=== PATIENT | male | born 1995 | race African-American/Black ===

== ENCOUNTER 2018-07-11 01:26 | Emergency (ER) | payer SELFPAY ==
[~2018-07-11] VITALS: Ht 175.3 cm; Wt 68.0 kg
[2018-07-11 02:00] VITALS: BP 164/92
== END 2018-07-11 02:25 | disposition left against medical advice (07) ==
LOC: ER 01:26
DX: K08.89 Other specified disorders of teeth and supporting structures (principal); Z53.21 Procedure and treatment not carried out due to patient leaving prior to being seen by health care provider

== ENCOUNTER 2021-02-15 18:49 | Emergency (ER) | payer SELFPAY ==
[~2021-02-15] VITALS: Ht 175.3 cm; Wt 59.9 kg
[2021-02-15 19:42] VITALS: BP 130/83
[2021-02-15] MEDS ORDERED: IBUPROFEN 200 MG TABLET. PO ONE (20:15)
[2021-02-15] MEDS ORDERED: HYDROcodone/APAP 5/325MG 1 TAB TABLET PO ONE (20:15)
[2021-02-15 20:16] LABS: BILIRUBIN,URINE NEGATIVE (NEG); CLARITY,URINE CLOUDY; COLOR,URINE AMBER; NITRITE,URINE NEGATIVE (NEG); PROTEIN,URINE 100 mg/dL (NEG-TRACE)
[2021-02-15 20:25] LABS: BACTERIA,URINE 0 /HPF (0-FEW); RBC,URINE 0 /HPF (0-2); WBC,URINE >40 /HPF (0-4)
[2021-02-15] MEDS ORDERED: cefTRIAXone IM 500 MG VIAL. IM ONE (21:00)
--- NOTE | 2021-02-15 21:12 | RAD ---
CLINICAL HISTORY: Reason: Left testicular swelling/pain / Spl. Instructions: / History: COMPARISON: None available. TECHNIQUE: Ultrasound images of the scrotum was performed with betancourt-scale and color doppler. FINDINGS: The right testicle measures 4.3 x 2.5 x 2.3 cm The left testis measures 4.3 x 2.9 x 2.5 cm. There is no intratesticular abnormality. Increased vascularity noted within the left testicle and ep ididymis. The epididymis is normal in appearance bilaterally. There is no hydrocele or varicocele. IMPRESSION: Findings concerning for left-sided epididymoorchitis Electronically signed by: Hamilton Forrester MD (02/15/2021 9:10 PM) [facility]
--- NOTE | 2021-02-15 21:39 | PHYS DOC ---
Past Medical History Past Medical History: No Pertinent History Past Surgical History: Other Additional Past Surgical Histo: L EAR SURGERY- REMOVED GLUE WHEN HE WAS 5 Smoking Status: Never Smoker Alcohol Use: Rarely Drug Use: Marijuana General Adult EDM: Chief Complaint: SEXUALLY TRANSMITTED DISEASE HPI: HPI: Patient is a 25-year-old male presents emergency department complaining of left testicular swelling and pain since last . Patient reports having unprotected vaginal sex 2 weeks ago. Denies having sex since then, reports mas turbation only. Rates pain 5 out of 10. Denies penile discharge, denies rashes or lesions to his penis or genitals, denies pain with urination, denies burning with urination, denies itching of the genitals or penis. Reports vaginal sex only, denies anal sex or sex with men. Denies recent fever or chills, ports his immunizations are up-to-date, denies throat pain or throat swelling. Reports multiple sex partners, denies history of epididymitis, reports having STIs in the past. Denies other physical complaints or physical concerns. Review of Systems: Review of Systems: 14 body systems of review of systems have been reviewed. See HPI for pertinent positives and negative responses, otherwise all other systems are negative, nonpertinent or noncontributory. Constitutional: Negative except as outlined in HPI above. Skin: Negative except as outlined in HPI above. Eyes: Negative except as outlined in HPI above. HENT: Negative except as outlined in HPI above. Respiratory: Negative except as outlined in HPI above. Cardiovascular: Negative except as outlined in HPI above. GI: Negative except as outlined in HPI above. : Negative except as outlined in HPI above. Musculoskeletal: Negative except as outlined in HPI above. Integument: Negative except as outlined in HPI above. Neurologic: Negative except as outlined in HPI above. Endocrine: Negative except as outlined in HPI above. Lymphatic: Negative except as outlined in HPI above. Psychiatric: Negative except as outlined in HPI above. Heart Score: C/O Chest Pain: No Risk Factors: Risk Factors: DM, Current or recent (<one month) smoker, HTN, HLP, family history of CAD, obesity. Risk Scores: Score 0 - 3: 2.5% MACE over next 6 weeks - Discharge Home Score 4 - 6: 20.3% MACE over next 6 weeks - Admit for Clinical Observation Score 7 - 10: 72.7% MACE over next 6 weeks - Early Invasive Strategies Current Medications: Current Medications Medications (Trade) Dose Ordered Sig/Catrachita Start Time Stop Time Status Last Admin Dose Admin Acetaminophen/ Hydrocodone Bitart (Lortab 5/325) 1 tab 1X ONCE 02/15/21 20:15 02/15/21 20:16 DC 02/15/21 20:27 1 TAB Ceftriaxone Sodium (Rocephin Im) 500 mg 1X ONCE 02/15/21 21:00 02/15/21 21:01 DC Ibuprofen (Motrin) 600 mg 1X ONCE 02/15/21 20:15 02/15/21 20:16 DC 02/15/21 20:26 600 MG Allergies: Allergies: Allergies Coded Allergies Type Severity Reaction Last Updated Verified No Known Drug Allergies 02/15/21 No Physical Exam: PE: Constitutional: Well developed, well nourished, no acute distress, non-toxic appearance. 25-year-old male in no apparent distress. HENT: Normocephalic, atraumatic. Eyes: Conjunctiva normal, no discharge. Neck: Normal range of motion. Cardiovascular: Distal cap refill less than 2 seconds, no cyanosis appreciated. Lungs & Thorax: Patient is in no respiratory distress, no adventitious lung sounds appreciated. Abdomen: Bowel sounds normal, soft, no tenderness, no masses, no pulsatile masses. No bruising or skin discoloration of the abdomen. Skin: Warm, dry, no erythema, no rash. Back: No tenderness, no CVA tenderness. Extremities: No tenderness, no cyanosis, no clubbing, ROM intact, no edema. Neurologic: Alert and oriented X 3, normal motor function, normal sensory function, no focal deficits noted. Psychologic: Affect normal, judgement normal, mood normal. : Genital exam revealed normal penis and testes with epididymal area scrotal mass, with tenderness to palpation, does not alleviate discomfort with elevation, no urethral discharge/no penile lesion, no variceal appreciated, scrotal mass appreciated with scrotal tenderness, tender and swollen epididymis without scrotal edema. No hernia of the right or left inguinal area, no hernia appreciated with the right or left femoral hernia. Digital rectal exam not performed. Current Patient Data: Labs: Laboratory Tests Test 02/15/21 20:06 Urine Collection Type Unknown Urine Color Ashley Urine Clarity Cloudy Urine pH 6.0 Urine Specific [place] >=1.030 Urine Protein 100 mg/dL Urine Glucose (UA) Negative mg/dL Urine Ketones (Stick) 40 mg/dL Urine Blood Negative Urine Nitrite Negative Urine Bilirubin Negative Urine Urobilinogen Dipstick 1.0 mg/dL Urine Leukocyte Esterase Small Urine RBC 0 /HPF Urine WBC >40 /HPF Urine Squamous Epithelial Cells Few /LPF Urine Bacteria 0 /HPF Urine Mucus Marked /LPF Current Medications Medications (Trade) Dose Ordered Sig/Catrachita Route PRN Reason Start Time Stop Time Status Last Admin Dose Admin Ibuprofen (Motrin) 600 mg 1X ONCE PO 02/15/21 20:15 02/15/21 20:16 DC 02/15/21 20:26 Acetaminophen/ Hydrocodone Bitart (Lortab 5/325) 1 tab 1X ONCE PO 02/15/21 20:15 02/15/21 20:16 DC 02/15/21 20:27 Ceftriaxone Sodium (Rocephin Im) 500 mg 1X ONCE IM 02/15/21 21:00 02/15/21 21:01 DC Laboratory Tests Test 02/15/21 20:06 Urine Collection Type Unknown Urine Color Ashley Urine Clarity Cloudy Urine pH 6.0 (<5.0-8.0) Urine Specific [place] >=1.030 (1.000-1.030) Urine Protein 100 mg/dL (NEG-TRACE) Urine Glucose (UA) Negative mg/dL (NEG) Urine Ketones (Stick) 40 mg/dL (NEG) Urine Blood Negative (NEG) Urine Nitrite Negative (NEG) Urine Bilirubin Negative (NEG) Urine Urobilinogen Dipstick 1.0 mg/dL (0.2 mg/dL) Urine Leukocyte Esterase Small (NEG) Urine RBC 0 /HPF (0-2) Urine WBC >40 /HPF (0-4) Urine Squamous Epithelial Cells Few /LPF Urine Bacteria 0 /HPF (0-FEW) Urine Mucus Marked /LPF Vital Signs: Vital Signs Date Time Temp Pulse Resp B/P (MAP) Pulse Ox O2 Delivery O2 Flow Rate FiO2 02/15/21 20:27 18 96 Room Air 02/15/21 19:42 98.4 101 130/83 (99) 98.4 EKG: EKG: [] Radiology/Procedures: Radiology/Procedures: PATIENT: DANIEL DHILLON MACCOUNT: [id number] : 1995 LOCATION: ER AGE: 25 SEX: M EXAM STATUS: REG ER ORD. PHYSICIAN: MICHAELA CLOUD APRN REASON: Left testicular swelling/pain PROCEDURE: TESTICULAR/SCROTUM CLINICAL HISTORY: Reason: Left testicular swelling/pain / Spl. Instructions: / History: COMPARISON: None available. TECHNIQUE: Ultrasound images of the scrotum was performed with betancourt-scale and color doppler. FINDINGS: The right testicle measures 4.3 x 2.5 x 2.3 cm The left testis measures 4.3 x 2.9 x 2.5 cm. There is no intratesticular abnormality. Increased vascularity noted within the left testicle and epididymis. The epididymis is normal in appearance bilaterally. There is no hydrocele or varicocele. IMPRESSION: Findings concerning for left-sided epididymoorchitis Electronically signed by: Hamilton Forrester MD (02/15/2021 9:10 PM) [facility] Course & Med Decision Making: Course & Med Decision Making Pertinent Labs and Imaging studies reviewed. (See chart for details) 25-year-old male, vital signs reviewed, presents emergency department concerning scrotal pain since this past , concern for STI. Physical exam concerning for testicular torsion versus epididymitis versus other genital/scrotal/testicular abnormality, will order testicular sonogram study. Patient given p.o. pain medications, urine analysis assay. The patient's urine is not infected. Sonogram concerning for epididymitis/orchitis, will prophylactically treat with 1 g Rocephin, prescription for doxycycline 100 mg twice daily x7 days related to patient's unprotected sex history with multiple partners. At 2109, patient's primary ED nurse stated patient has eloped from the emergency department. The patient was not treated with Rocephin prior to elopement, the patient eloped prior to reexamination and explanation of ED work-up findings. Unable to reach patient with information provided on demographic sheet. Dragon Disclaimer: Sj Disclaimer: This electronic medical record was generated, in whole or in part, using a voice recognition dictation system. Departure Departure Impression: Primary Impression: Epididymo-orchitis Additional Impression: Eloped from emergency department Referrals: NO PCP (PCP) MICHAELA CLOUD APRN Feb 15, 2021 21:39
== END 2021-02-15 21:00 | disposition left against medical advice (07) ==
LOC: ER 18:49
DX: N45.3 Epididymo-orchitis (principal)
CPT/HCPCS: 76870; 81001; 87086; 87491; 87591; 99284